=== PATIENT | female | born 1965 | race African-American/Black ===

== ENCOUNTER 2020-07-10 12:42 | Emergency (ER) | payer MEDICAID ==
[2020-07-10] MEDS ORDERED: Orphenadrine 60 MG/2 ML Inj IM STA (12:58)
[2020-07-10] MEDS ORDERED: Ketorolac 30 MG/ML SDV IM ONE (12:58)
[2020-07-10] MEDS ORDERED: predniSONE 20 MG Tab PO ONE (12:59)
--- NOTE | 2020-07-10 12:59 | EDM.PDOC ---
ED HPI GENERAL MEDICAL PROBLEM - General Stated Complaint: Lower back pain Time Seen by Provider: 07/10/20 12:45 Source of Information: Reports: Patient History Limitations: Reports: No Limitations - History of Present Illness INITIAL COMMENTS - FREE TEXT/NARRATIVE: Patient comes emergency department today with complaints of right lower back pain that radiates down her right buttocks. This patient relates since yesterday after she was walking and she twisted funny she has had a pain in her right lower back that radiates down her right buttocks. There was no fall trauma or injury. She has had a similar symptoms of this many times in the past. She has not tried anything for pain [id number] or any other interventions for this pain. It is sharp shooting stabbing in nature. Worse with movement bending and flexion. No flank pain. No fever no chills. No nausea no vomiting. No hematuria dysuria or urinary frequency. No black or tarry stools. No loss of bowel or bladder. No paresthesias of the lower extremity. No change in the functionality of her lower extremities. No Covid exposure no Covid symptoms. Right Buttock Pain Score (Numeric/FACES): 8 - Related Data Home Meds: Home Meds Cyclobenzaprine [Flexeril] 10 mg PO TID PRN #12 tab 07/10/20 [Rx] predniSONE 20 mg PO DAILY #8 tab 07/10/20 [Rx] ED ROS GENERAL - Review of Systems Review Of Systems: Comprehensive ROS is negative, except as noted in HPI. ED EXAM,LOWER BACK PAIN/INJURY - Physical Exam Exam: See Below Exam Limited By: No Limitations General Appearance: Alert, WD/WN, No Apparent Distress Eye Exam: Bilateral Eye: EOMI, PERRL Ears: Normal External Exam Nose: Normal Inspection Throat/Mouth: Normal Inspection Head: Atraumatic, Normocephalic Neck: Normal Inspection, Supple Respiratory/Chest: No Respiratory Distress Cardiovascular: Normal Peripheral Pulses, Regular Rate, Rhythm GI/Abdominal: Normal Bowel Sounds, Soft, Non-Tender (Female) Exam: Deferred Rectal (Female) Exam: Deferred Back Exam: Normal Inspection, Full Range of Motion, Decreased Range of Motion, Paraspinal Tenderness (She has some tenderness paraspinal to the right lower lumbar region at the very low lumbar aspect. There is no bruising swelling ecchymosis bony deformity. There is no rash.). No: CVA Tenderness (L), CVA Tenderness (R), Muscle Spasm, Vertebral Tenderness Extremities: Normal Inspection, No Pedal Edema Neurological: Alert, Normal Mood/Affect, CN II-XII Intact, Normal Plantar Flexion, Normal Gait, Normal Reflexes, No Motor/Sensory Deficits, Oriented x 3 DTR - Lower Extremities: 2+: Knee (R), Knee (L), Ankle (R), Ankle (L) Psychiatric: Normal Affect, Normal Mood Skin Exam: Warm, Dry, Intact, Normal Color, No Rash Lymphatic: No Adenopathy Course - Vital Signs Last Recorded V/S: Last Vital Signs Temp 97.1 F 07/10/20 12:45 Pulse 90 07/10/20 12:45 Resp 16 07/10/20 12:45 BP 162/97 H 07/10/20 12:45 Pulse Ox 96 07/10/20 12:45 - Orders/Labs/Meds Meds: Medications Discontinued Medications Generic Name Dose Route Start Last Admin Trade Name Nicci PRN Reason Stop Dose Admin Ketorolac Tromethamine 30 mg 07/10/20 12:58 07/10/20 13:11 Toradol IM 07/10/20 12:59 30 mg ONETIME ONE Administration Orphenadrine Citrate 60 mg 07/10/20 12:58 07/10/20 13:13 Norflex IM 07/10/20 12:59 60 mg NOW STA Administration Prednisone 40 mg 07/10/20 12:59 07/10/20 13:14 Prednisone PO 07/10/20 13:00 40 mg ONETIME ONE Administration - Re-Assessments/Exams Free Text/Narrative Re-Assessment/Exam: 07/10/20 13:07 Ketorolac 30 mg IM. Norflex 60 mg IM. Prednisone 40 mg p.o. 07/10/20 13:49 She had quite a bit of improvement of the pain with the above therapy. We will discharge her home with symptomatic management as well as exercises for sciatica. Flexeril NSAIDs and prednisone. See physical therapy if not improving. She is comfortable this plan and her questions are answered. Departure - Departure Time of Disposition: 13:42 Disposition: Home, Self-Care 01 Clinical Impression: Sciatica Qualifiers: Laterality: right Qualified Code(s): M54.31 - Sciatica, right side - Discharge Information Instructions: Sciatica, [id number], Back Injury Prevention, [id number], Pain Medicine Instructions, [id number] Referrals: PCP,None [Primary Care Provider] - Additional Instructions: Tylenol and or Ibuprofen as needed for pain. Heat or Ice to the area whichever works best for you. Do not bedridden yourself or do too much as both of these are exacerbated your pain. There is a fine line that you have to determine. Flexeril, 1 tablet three times a day as needed for lower back pain spams, Caution sedation. Starter pack from the ED given and RX sent to [facility]. Prednisone, 40mg a day for the nest 5 days. First dose given in the ED and RX sent to [facility]. See the printed discharged exercises for low back pain instructions. See physical therapy if not improving on the next few days. Return to the ED if new or worsening symptoms. Follow up with PCP in the next week if not improving sooner if worse. Sepsis Event Note (ED) - Focused Exam Vital Signs: Vital Signs Temp Pulse Resp BP Pulse Ox 07/10/20 12:45 97.1 F 90 16 162/97 H 96
[2020-07-10] MEDS ORDERED: Take Home: Cyclobenzaprine 10 MG Tab, 4 Tab Pack PO ONE (13:49)
== END 2020-07-10 13:55 | disposition home or self-care (01) ==
LOC: VM.ED 12:42
DX: M54.41 Lumbago with sciatica, right side (principal)
CPT/HCPCS: 96372; 99283; A9270; J1885; J2360; J7512